=== PATIENT | female | born 1995 | race Caucasian/White ===

== ENCOUNTER 2018-02-11 18:03 | Emergency (ER) | payer BC ==
--- NOTE | 2018-02-11 21:46 | UC ---
Back Pain HPI - HPI Summary HPI Summary: Patient is a 22-year-old female with the onset of of left scapular pleuritic pain and tenderness occurred last night and was of sudden onset she denies any shortness of breath. She has no leg pain or swelling. The pain radiates around to her left. She denies any nausea vomiting or diarrhea months ago she did have a URI. - History of Current Complaint Chief Complaint: UCAbdominalPain Stated Complaint: ABDOMEN/LOW BACK/LFT SHOULDER PAIN Time Seen by Provider: 02/11/18 19:41 Hx Obtained From: Patient Hx Last Menstrual Period: 01/12/18 Onset/Duration: Sudden Onset, Lasting Hours Timing: Constant Severity Initially: Moderate Severity Currently: Moderate Pain Intensity: 7 Pain Scale Used: 0-10 Numeric Back Pain: Is Discrete @ Character: Sharp Aggravating Factor(s): Other - respiration Alleviating Factor(s): Nothing Associated Signs And Symptoms: Positive: Negative - Allergies/Home Medications Allergies/Adverse Reactions: Allergies Allergy/AdvReac Type Severity Reaction Status Date / Time cefaclor [From Ceclor] Allergy Rash Verified 02/11/18 19:50 cefprozil [From Cefzil] Allergy Shortness Verified 02/11/18 19:50 of Breath hydrocodone AdvReac Vomiting Verified 02/11/18 19:50 Home Medications: Home Medications NK [No Home Medications Reported] 02/11/18 [History Confirmed 02/11/18] PMH/Surg Hx/FS Hx/Imm Hx Previously Healthy: Yes - Surgical History Surgical History: Yes Surgery Procedure, Year, and Place: R knee, T & A - Family History Known Family History: Positive: Hypertension, Other - mom with hx DVT - Social History Alcohol Use: Occasionally Substance Use Type: None Smoking Status (MU): Never Smoked Tobacco Review of Systems All Other Systems Reviewed And Are Negative: Yes Constitutional: Positive: Negative Skin: Positive: Negative Eyes: Positive: Negative ENT: Positive: Negative Respiratory: Positive: Negative Cardiovascular: Positive: Negative Gastrointestinal: Positive: Negative Genitourinary: Positive: Negative Motor: Positive: Negative Neurovascular: Positive: Negative Musculoskeletal: Positive: Myalgia Neurological: Positive: Negative Psychological: Positive: Negative Physical Exam Triage Information Reviewed: Yes Appearance: Well-Appearing, No Pain Distress, Well-Nourished, Other: - bsa 52 Vital Signs: Initial Vital Signs Temp 99.6 F 02/11/18 19:40 Pulse 133 02/11/18 19:40 Resp 16 02/11/18 19:40 BP 159/87 02/11/18 19:40 Pulse Ox 100 02/11/18 19:40 Vital Signs Reviewed: Yes Eyes: Positive: Conjunctiva Clear ENT: Positive: Hearing grossly normal, Uvula midline. Negative: Nasal congestion, Nasal drainage, Trismus, Muffled voice Neck: Positive: Supple, Nontender, No Lymphadenopathy Respiratory: Positive: Chest non-tender, Lungs clear, Normal breath sounds, No respiratory distress, No accessory muscle use Cardiovascular: Positive: RRR, No Murmur, Tachycardia Abdomen Description: Negative: Nontender - slight LUQ abd tenderness, CVA Tenderness (R), CVA Tenderness (L) Bowel Sounds: Positive: Present Neurological: Positive: Alert, Muscle Tone Normal Psychological Exam: Normal Skin Exam: Normal Diagnostics - Radiology No standard instances Radiology Interpretation Completed By: ED Physician Summary of Radiographic Findings: CXR (-) - EKG Cardiac Rate: Tachycardia Ectopy: None ST Segment: Normal EKG Comparison: No Significant Change Back Pain Course/Dx - Course Course Of Treatment: d/w Dr. Nunn. to [facility] ER for evaluation - Differential Dx/Diagnosis Provider Diagnosis: Pleuritic pain Discharge - Sign-Out/Discharge Documenting (check all that apply): Patient Departure All imaging exams completed and their final reports reviewed: No - Discharge Plan Condition: Stable Disposition: HOME-RECOMMEND TO ED Referrals: No Primary Care Phys,NOPCP [Primary Care Provider] - Additional Instructions: TO [facility] ER they are expecting you take copy of CXR and EKG - Billing Disposition and Condition Condition: STABLE Disposition: Home-Recommend to ED
[2018-02-11 21:53] VITALS: BP 126/67
--- NOTE | 2018-02-12 16:13 | ED ---
Progress - Progress Note Progress Note: Chest xray reading by rad: JORGE. no change from wet read. Course/Dx - Course Course Of Treatment: d/w Dr. Nunn. to [facility] ER for evaluation - Diagnoses Provider Diagnoses: Pleuritic pain Discharge - Sign-Out/Discharge Documenting (check all that apply): Patient Departure All imaging exams completed and their final reports reviewed: Yes - Discharge Plan Condition: Stable Disposition: HOME-RECOMMEND TO ED Referrals: No Primary Care Phys,NOPCP [Primary Care Provider] - Additional Instructions: TO [facility] ER they are expecting you take copy of CXR and EKG - Billing Disposition and Condition Condition: STABLE Disposition: Home-Recommend to ED
== END 2018-02-11 21:52 | disposition home health service (06) ==
LOC: UCCORT 18:03
DX: R07.81 Pleurodynia (principal); Z88.5 Allergy status to narcotic agent; Z88.1 Allergy status to other antibiotic agents
CPT/HCPCS: 71046; 81003; 84702; 93005; 99201; G0463